=== PATIENT | female | born 1945 | race Caucasian/White ===

== ENCOUNTER 2016-08-21 12:39 | Emergency (ER) | payer OTHER ==
[2016-08-21] MEDS ORDERED: SODIUM CHLORIDE 0.9% 1,000 ML ONE (13:27)
[2016-08-21] MEDS ORDERED: CEFTRIAXONE 1 GM VIAL ONE (14:41)
[2016-08-21] MEDS ORDERED: SODIUM CHLORIDE 0.9% 100 ML IV ONE (14:41)
[2016-08-21] MEDS ORDERED: SODIUM CHLORIDE 0.9% 250 ML IV ONE (14:41)
[2016-08-21] MEDS ORDERED: AZITHROMYCIN 500 MG VIAL IV ONE (14:41)
== END 2016-08-21 17:15 | disposition home or self-care (01) ==
LOC: ER 12:39
DX: R41.82 Altered mental status, unspecified (principal); R41.0 Disorientation, unspecified; R50.9 Fever, unspecified; J15.9 Unspecified bacterial pneumonia; D72.829 Elevated white blood cell count, unspecified; Z79.899 Other long term (current) drug therapy; Z79.84 Long term (current) use of oral hypoglycemic drugs
CPT/HCPCS: 36415; 71010; 80053; 81001; 82947; 83605; 83880; 84145; 84484; 85025; 87040; 87088; 87804; 93005; 96361; 96365; 96375; 99285; J0696; J7050

== ENCOUNTER 2016-08-30 17:17 | Inpatient (IN) | payer OTHER ==
[~2016-08-30] VITALS: Ht 152.4 cm; Wt 99.5 kg
[2016-08-30] MEDS ORDERED: DUONEB INH ONE (17:43)
[2016-08-30] MEDS ORDERED: SODIUM CHLORIDE 0.9% 1,000 ML ONE ×2 (17:43→18:55)
[2016-08-30] MEDS ORDERED: ACETAMINOPHEN 650 MG SUPP RECTAL ONE ×2 (18:45→18:56)
[2016-08-30] MEDS ORDERED: CEFTRIAXONE 1 GM VIAL ONE (19:57)
[2016-08-30] MEDS ORDERED: AZITHROMYCIN 500 MG VIAL IV ONE (19:57)
[2016-08-30] MEDS ORDERED: SODIUM CHLORIDE 0.9% 250 ML IV ONE (19:58)
[2016-08-30] MEDS ORDERED: SODIUM CHLORIDE 0.9% 100 ML IV ONE (19:58)
[2016-08-30] MEDS ORDERED: SOD CHLOR 0.9% 1000 ML IV SCH (21:20)
[2016-08-30] MEDS ORDERED: KETOROLAC 30 MG/ML VIAL ONE (21:37)
[2016-08-30 22:25] VITALS: BP_SYST 70; RESP 16; TEMP 97.7
[2016-08-30 22:26] VITALS: Ht 152.4 cm; Wt 99.5 kg
[2016-08-30] MEDS ORDERED: GLUCAGON 1 MG VIAL IM PRN (22:50)
[2016-08-30] MEDS ORDERED: DEXTROSE 50% SYRINGE 50 ML IV PRN (22:50)
[2016-08-30] MEDS: DUONEB INH SCH (23:00)
[2016-08-31] VITALS (7 sets, daily range): BP systolic 94–143; RESP 16–18; TEMP 97.7–98.1
[2016-08-31] MEDS: VENLAFAXINE XR 150 MG CAP PO SCH ×2 (00:29→20:14)
[2016-08-31] MEDS: SACCHA BOULARDII 250MG CAP PO SCH ×3 (00:29→20:14)
[2016-08-31] MEDS: MORPHINE ER 15 MG TAB PO SCH ×3 (00:30→20:15)
[2016-08-31] MEDS: DUONEB INH SCH ×6 (03:01→23:18)
[2016-08-31] MEDS: PANTOPRAZOLE 40 MG TAB PO SCH (05:18)
[2016-08-31] MEDS: LEVOTHYROXINE 0.05 MG TAB PO SCH (05:18)
[2016-08-31] MEDS ORDERED: LEVEMIR INSULIN SUBQ SCH (08:00)
[2016-08-31] MEDS: CEFTRIAXONE 1 GM in SODIUM CHLORIDE 0.9% 50 ML IV SCH (09:22)
[2016-08-31] MEDS: AZITHROMYCIN 500 MG in SODIUM CHLORIDE 0.9% 250 ML IV SCH (10:54)
[2016-08-31] MEDS: SODIUM BICARB 8.4% 50 ML in SODIUM CHLORIDE 0.45% 1,000 ML IV SCH (12:12)
[2016-08-31] MEDS: ENOXAPARIN 30 MG/0.3 ML SYR SUBQ SCH (14:44)
[2016-08-31] MEDS: NYSTATIN 500,000 UNITS/5 ML SUSP SWISH.SWAL SCH (21:32)
[2016-09-01] MEDS: DUONEB INH SCH ×6 (02:33→23:00)
[2016-09-01] MEDS ORDERED: MISSING DOSE XX ONE (03:30)
[2016-09-01 03:39] VITALS: BP_SYST 114; RESP 16; TEMP 97.7
[2016-09-01] MEDS: SODIUM BICARB 8.4% 50 ML in SODIUM CHLORIDE 0.45% 1,000 ML IV SCH (04:30)
[2016-09-01] MEDS: PANTOPRAZOLE 40 MG TAB PO SCH (06:10)
[2016-09-01] MEDS: LEVOTHYROXINE 0.05 MG TAB PO SCH (06:10)
[2016-09-01 07:08] VITALS: BP_SYST 123; RESP 18; TEMP 97.5
[2016-09-01] MEDS: MORPHINE ER 15 MG TAB PO SCH ×2 (08:47→20:17)
[2016-09-01] MEDS: NYSTATIN 500,000 UNITS/5 ML SUSP SWISH.SWAL SCH ×4 (08:47→20:16)
[2016-09-01] MEDS: SACCHA BOULARDII 250MG CAP PO SCH ×2 (08:47→20:15)
[2016-09-01] MEDS: LEVEMIR INSULIN SUBQ SCH (08:48)
[2016-09-01] MEDS: CEFTRIAXONE 1 GM in SODIUM CHLORIDE 0.9% 50 ML IV SCH (08:48)
[2016-09-01] MEDS: ENOXAPARIN 30 MG/0.3 ML SYR SUBQ SCH (08:49)
[2016-09-01] MEDS ORDERED: SODIUM BICARB 8.4% 50 ML in SODIUM CHLORIDE 0.45% 1,000 ML IV SCH ×2 (09:15→11:55)
[2016-09-01] MEDS: AZITHROMYCIN 500 MG in SODIUM CHLORIDE 0.9% 250 ML IV SCH (10:10)
[2016-09-01] MEDS: POLYETHYLENE GLYCOL 17 GM PACKET PO SCH (10:11)
[2016-09-01] MEDS: DOCUSATE SOD 100 MG CAP PO SCH ×2 (10:11→20:15)
[2016-09-01] MEDS ORDERED: BISACODYL 10 MG SUPP RECTAL PRN (10:50)
[2016-09-01] MEDS ORDERED: ONDANSETRON 4 MG VIAL IV PUSH PRN (10:50)
[2016-09-01 11:52] VITALS: BP_SYST 121; RESP 18; TEMP 97.8
[2016-09-01] MEDS: TRIAMCINOLONE 0.1% TOPICAL SCH ×3 (12:41→20:17)
[2016-09-01 15:00] VITALS: BP_SYST 148; RESP 18; TEMP 97.5
[2016-09-01 20:06] VITALS: BP_SYST 136; RESP 16; TEMP 98.3
[2016-09-01] MEDS: VENLAFAXINE XR 150 MG CAP PO SCH (20:15)
[2016-09-01 22:36] VITALS: BP_SYST 137; RESP 16; TEMP 97.6
[2016-09-02] MEDS: DUONEB INH SCH ×6 (02:47→22:56)
[2016-09-02 02:53] VITALS: BP_SYST 127; RESP 16; TEMP 98.5
[2016-09-02] MEDS: LEVOTHYROXINE 0.05 MG TAB PO SCH (06:06)
[2016-09-02] MEDS: PANTOPRAZOLE 40 MG TAB PO SCH (06:07)
[2016-09-02 07:10] VITALS: BP_SYST 133; RESP 16; TEMP 97.9
[2016-09-02] MEDS: POLYETHYLENE GLYCOL 17 GM PACKET PO SCH (08:28)
[2016-09-02] MEDS: AZITHROMYCIN 500 MG in SODIUM CHLORIDE 0.9% 250 ML IV SCH (08:28)
[2016-09-02] MEDS: ENOXAPARIN 30 MG/0.3 ML SYR SUBQ SCH (08:28)
[2016-09-02] MEDS: NYSTATIN 500,000 UNITS/5 ML SUSP SWISH.SWAL SCH ×4 (08:28→20:23)
[2016-09-02] MEDS: CEFTRIAXONE 1 GM in SODIUM CHLORIDE 0.9% 50 ML IV SCH (08:29)
[2016-09-02] MEDS: LEVEMIR INSULIN SUBQ SCH (08:29)
[2016-09-02] MEDS: DOCUSATE SOD 100 MG CAP PO SCH ×2 (08:30→20:22)
[2016-09-02] MEDS: MORPHINE ER 15 MG TAB PO SCH ×2 (08:30→20:22)
[2016-09-02] MEDS: SACCHA BOULARDII 250MG CAP PO SCH ×2 (08:30→20:22)
[2016-09-02] MEDS: TRIAMCINOLONE 0.1% TOPICAL SCH ×3 (08:33→20:23)
[2016-09-02] MEDS: METHYLPRED SOD SUCC 125 MG/2 ML VIAL IV SCH ×2 (10:08→16:31)
[2016-09-02] MEDS: METOPROLOL XL 25 MG TAB PO SCH ×2 (10:08→20:22)
[2016-09-02 11:51] VITALS: BP_SYST 137; RESP 18; TEMP 97.9
[2016-09-02 15:08] VITALS: BP_SYST 136; RESP 18; TEMP 97.6
[2016-09-02] MEDS: VENLAFAXINE XR 150 MG CAP PO SCH (20:22)
[2016-09-02 20:46] VITALS: BP_SYST 128; RESP 18; TEMP 98.4
[2016-09-02 23:12] VITALS: BP_SYST 144; RESP 18; TEMP 99
[2016-09-03] MEDS: METHYLPRED SOD SUCC 125 MG/2 ML VIAL IV SCH ×2 (00:02→08:27)
[2016-09-03] MEDS: DUONEB INH SCH ×2 (02:49→07:38)
[2016-09-03 03:22] VITALS: BP_SYST 112; RESP 18; TEMP 98.7
[2016-09-03] MEDS: LEVOTHYROXINE 0.05 MG TAB PO SCH (06:15)
[2016-09-03] MEDS: PANTOPRAZOLE 40 MG TAB PO SCH (06:15)
[2016-09-03 07:11] VITALS: BP_SYST 115; RESP 18; TEMP 98.4
[2016-09-03] MEDS: SACCHA BOULARDII 250MG CAP PO SCH (08:26)
[2016-09-03] MEDS: METOPROLOL XL 25 MG TAB PO SCH (08:26)
[2016-09-03] MEDS: DOCUSATE SOD 100 MG CAP PO SCH (08:26)
[2016-09-03] MEDS: MORPHINE ER 15 MG TAB PO SCH (08:26)
[2016-09-03] MEDS: LEVEMIR INSULIN SUBQ SCH (08:28)
[2016-09-03] MEDS: NYSTATIN 500,000 UNITS/5 ML SUSP SWISH.SWAL SCH (08:28)
[2016-09-03] MEDS: ENOXAPARIN 30 MG/0.3 ML SYR SUBQ SCH (08:28)
[2016-09-03] MEDS: TRIAMCINOLONE 0.1% TOPICAL SCH (08:29)
[2016-09-03] MEDS: CEFTRIAXONE 1 GM in SODIUM CHLORIDE 0.9% 50 ML IV SCH (08:31)
[2016-09-03] MEDS ORDERED: AZITHROMYCIN 250 MG TAB PO ONE (09:00)
[2016-09-03 09:23] VITALS: BP_SYST 115; RESP 18; TEMP 98.4
== END 2016-09-03 10:16 | disposition home or self-care (01) | DRG 871 ==
LOC: ENRESERVTM → ENRESERVDT → ER 17:17 → ENPENDDIS 20:58 → EMR 20:58 → 4THW 22:00
PROVIDERS: ADMIT Internal Medicine; ATTEND Internal Medicine
DX: A41.9 Sepsis, unspecified organism (principal); J18.9 Pneumonia, unspecified organism; J96.91 Respiratory failure, unspecified with hypoxia; I11.0 Hypertensive heart disease with heart failure; N17.9 Acute kidney failure, unspecified; E87.2 Acidosis; I50.9 Heart failure, unspecified; B37.0 Candidal stomatitis; Z68.41 Body mass index [BMI] 40.0-44.9, adult; E66.2 Morbid (severe) obesity with alveolar hypoventilation; J44.0 Chronic obstructive pulmonary disease with (acute) lower respiratory infection; R65.20 Severe sepsis without septic shock; E86.0 Dehydration; Z79.4 Long term (current) use of insulin; M79.7 Fibromyalgia; E78.5 Hyperlipidemia, unspecified; E03.9 Hypothyroidism, unspecified; K21.9 Gastro-esophageal reflux disease without esophagitis; K59.09 Other constipation; G89.29 Other chronic pain; M54.9 Dorsalgia, unspecified; E11.9 Type 2 diabetes mellitus without complications; G47.00 Insomnia, unspecified; B96.0 Mycoplasma pneumoniae [M. pneumoniae] as the cause of diseases classified elsewhere; Z79.84 Long term (current) use of oral hypoglycemic drugs
CPT/HCPCS: 36415; 71010; 80048; 80053; 81001; 82553; 82947; 83605; 83880; 84484; 85025; 86738; 87040; 87071; 87278; 87299; 93005; 94640; 94799; 96361; 96365; 96367; 96375